=== PATIENT | male | born 1990 | race Caucasian/White ===

== ENCOUNTER → 2022-11-07 11:17 | Outpatient (CLI) | payer OTHER, SELFPAY ==
--- NOTE | ~2022-11-07 | US_ITS ---
Testicular ultrasound with doppler. Indication: Right testicular pain. Technique: Real-time sonography the scrotum was performed. Color flow Doppler and Doppler spectral an alysis were performed. Findings: The testes are homogeneous in echotexture bilaterally. There is no evidence of an intrates ticular mass. The right testis measures 5.0 x 2.4 x 3.1 cm and the left 4.9 x 2.5 x 3.0 cm. There is color-flow seen to both testes. Arterial and venous spectral waveforms are seen in both testes. There is no sonographic evidence of torsion. 3 mm right epididymal head cyst or spermatocele present. Smal l bilateral hydroceles are present. Impression: No testicular mass or torsion. Small bilateral hydroceles. 3 mm right epididymal head cyst or spermatocele. Reviewed, dictated and finalized at [facility]. Impression: No testicular mass or torsion. Small bilateral hydroceles. 3 mm right epididymal head cyst or spermatocele.
== END ==
PROVIDERS: PCP Family Medicine; Visit Provider Nurse Practitioner Family
DX: N43.3 Hydrocele, unspecified (principal); N50.3 Cyst of epididymis
CPT/HCPCS: 76870; 93976

== ENCOUNTER 2023-10-02 07:00 | Outpatient (NON) | payer OTHER, SELFPAY | END 2023-10-03 07:24 | disposition home or self-care (01) | PROVIDERS: PCP Family Medicine; Visit Provider Internal Medicine Gastroenterology | DX: K29.50 Unspecified chronic gastritis without bleeding (principal) | CPT/HCPCS: 88305 ==

== ENCOUNTER 2023-10-02 09:03 | Day surgery (SDC) | payer OTHER, SELFPAY ==
[2023-08-31 11:36] VITALS: BMI 32.0
--- NOTE | 2023-10-02 07:15 | WPDANESEPPF ---
Anes - Initial Pre Proc Eval Procedure: Operation Date: 10/02/23 11:30 Proposed Procedures p Esophagogastroduodenoscopy - Red Cardenas MD Date/Time: 10/02/23 07:15 Surgeon: Red Cardenas MD Pre Op Diagnosis: Gerd without Esophagitis Patient Data Age: 33 Gender: M Height: 1.83 m Weight: 102.5 kg Allergies Allergy/AdvReac Type Severity Reaction Status Date / Time Sulfa (Sulfonamide Allergy Mild Unknown Verified 10/02/23 10:10 Antibiotics) Home Medications Medication Instructions Recorded Confirmed Type finasteride 1 mg tablet 1 mg PO DAILY 08/20/20 10/02/23 History minoxidil 5 % topical solution 1 ml topical BID 05/26/21 10/02/23 History cetirizine 10 mg tablet (All Day 10 mg PO DAILY #30 tabs 04/11/23 10/02/23 Rx Allergy (cetirizine)) fluticasone propionate 50 1 spray intranasal BID #16 grams 08/29/23 10/02/23 Rx mcg/actuation nasal spray,suspension (Flonase Allergy Relief) pantoprazole 40 mg tablet,delayed 40 mg PO BID #60 tabs 08/29/23 10/02/23 Rx release (Protonix) Patient hx anesthesia problems: none Family hx anesthesia problems: none Results Review: All pre-operative results and documents have been reviewed as part of the pre-operative evaluation. [facility] Past Medical History Medical History Acute sinusitis BMI 31.0-31.9,adult BMI 33.0-33.9,adult Encounter for wellness examination in adult Enlarged lymph nodes GERD (gastroesophageal reflux disease) Male pattern alopecia Obesity (BMI 30.0-34.9) Seasonal allergic rhinitis Seasonal allergies Sensation of lump in throat Testicular pain, right (~10/2022) Ultrasound 11/07/2022 with small bilateral hydroceles, negative. Throat discomfort Surgical History Surgical History [place] teeth extracted Family History Family History Mother Skin cancer Grandparent Skin cancer Social History Social History Smoking status: Never smoker Alcohol intake: current Drinks per week: 1 Alcohol use details: 1-2 per month Substance use: never Substance use type: does not use Lack of Transportation: No Lack of Food: Never True Current Housing: I Have Housing Concerned About Future Housing: No Difficulty Paying Gas/Electric Bills: No Difficulty Paying for Meds: No Currently Unemployed: No Education: Bachelor's Degree Difficulty w/ Childcare or Family Care: No Anes - Eval Final PreProcedure Day of Procedure 10/02/23 07:15 Patient weight: obese Heart: regular rate and rhythm Lungs: clear to auscultation Airway: Mallampati scale class II Neurological: alert and oriented Last oral intake: >/= 8 hours ASA classification: II Emergent: no Anesthetic plan: proceed Anesthesia type and monitoring: general GIVS and standard monitoring Results Review: All pre-operative results and documents have been reviewed as part of the pre-operative evaluation. Informed Consent: The patient's anesthetic plan and its attendant risks and benefits were discussed with the patient/family/POA. Questions were solicited and answers provided to the satisfaction of the patient/family/POA.
[2023-10-02 10:17] VITALS: BP 123/73; PULSE 75; RESP 16; TEMP 37; O2SAT 100
--- NOTE | 2023-10-02 10:41 | PM.HPGS ---
History of Present Illness History of Present Illness Consent: Risks, benefits, and alternatives have been discussed and questions answered. Patient agrees to proceed with procedure. Chief complaint: Gerd without Esophagitis Narrative: Sudarshan Gore is a 33 year old male With symptoms of acid reflux for which he takes pantoprazole daily. He also has a sensation of a lump in throat. Review of Systems Review of Systems: All systems reviewed & are unremarkable except as noted in HPI and below PMFSH Past Medical History Medical History Acute sinusitis BMI 31.0-31.9,adult BMI 33.0-33.9,adult Encounter for wellness examination in adult Enlarged lymph nodes GERD (gastroesophageal reflux disease) Male pattern alopecia Obesity (BMI 30.0-34.9) Seasonal allergic rhinitis Seasonal allergies Sensation of lump in throat Testicular pain, right (~10/2022) Ultrasound 11/07/2022 with small bilateral hydroceles, negative. Throat discomfort Surgical History Surgical History [place] teeth extracted Family History Family History Mother Skin cancer Grandparent Skin cancer Social History Social History Smoking status: Never smoker Alcohol intake: current Drinks per week: 1 Alcohol use details: 1-2 per month Substance use: never Substance use type: does not use Lack of Transportation: No Lack of Food: Never True Current Housing: I Have Housing Concerned About Future Housing: No Difficulty Paying Gas/Electric Bills: No Difficulty Paying for Meds: No Currently Unemployed: No Education: Bachelor's Degree Difficulty w/ Childcare or Family Care: No Meds Home Medications and Allergies Home Medications Medication Instructions Recorded Confirmed Type finasteride 1 mg tablet 1 mg PO DAILY 08/20/20 10/02/23 History minoxidil 5 % topical solution 1 ml topical BID 05/26/21 10/02/23 History cetirizine 10 mg tablet (All Day 10 mg PO DAILY #30 tabs 04/11/23 10/02/23 Rx Allergy (cetirizine)) fluticasone propionate 50 1 spray intranasal BID #16 grams 08/29/23 10/02/23 Rx mcg/actuation nasal spray,suspension (Flonase Allergy Relief) pantoprazole 40 mg tablet,delayed 40 mg PO BID #60 tabs 08/29/23 10/02/23 Rx release (Protonix) Allergies Allergy/AdvReac Type Severity Reaction Status Date / Time Sulfa (Sulfonamide Allergy Mild Unknown Verified 10/02/23 10:10 Antibiotics) Vital Signs Vital Signs - 24 hr 10/02/23 10:17 Temperature 37.0 C Pulse Rate 75 Respiratory Rate 16 Blood Pressure 123/73 Pulse Oximetry 100 Oxygen Delivery Room Air Exam Const: General: alert Orientation/consciousness: patient oriented x3 Resp: Auscultation: clear to auscultation bilaterally Cardio: Rhythm: regular rhythm GI: GI Palp: Yes Soft to palpation and No Tenderness to palpation present (GI) Neuro: General: patient oriented x3 Assessment and Plan Assessment and plan (1) GERD (gastroesophageal reflux disease): Code(s): K21.9 - Gastro-esophageal reflux disease without esophagitis Status: Acute Assessment and Plan: EGD with possible biopsy or dilatation or cautery.
[2023-10-02] MEDS: LACTATED RINGERS 1,000 ML 150 ML IV CONT (11:11)
[2023-10-02 11:23] VITALS: BP 111/73; PULSE 66; RESP 14; O2SAT 95
[2023-10-02 11:33] VITALS: BP 103/70; PULSE 67; RESP 14; O2SAT 95
[2023-10-02 11:43] VITALS: BP 110/72; PULSE 68; RESP 16; O2SAT 98
--- NOTE | 2023-10-02 13:17 | WPDANESPN ---
Anes - Prog Note Post-Op Date/Time: 10/02/23 13:17 Cardiovascular status: normal Respiratory status: normal Airway patency: baseline Mental status: baseline Post-Op hydration status: normal Vital Signs: Last Vital Signs Temp 37.0 C 10/02/23 10:17 Pulse 68 10/02/23 11:43 Resp 16 10/02/23 11:43 BP 110/72 10/02/23 11:43 Pulse Ox 98 10/02/23 11:43 O2 Del Method Room Air 10/02/23 11:43 Pain Score (VAS): 0 I/O: Intake & Output 10/01/23 10/02/23 10/02/23 23:59 07:59 15:59 Intake Total 180 Balance 180 Post-procedural complaints: none Patient Feedback: Patient satisfied with anesthetic care. Other Findings: Patient vital signs back to baseline. Patient denies nausea and vomiting. Patient's pain under control. Patient OK for discharge.
== END 2023-10-02 12:00 | disposition home or self-care (01) ==
PROVIDERS: PCP Family Medicine; Visit Provider Internal Medicine Gastroenterology
PROC: 0DJ08ZZ Inspection of Upper Intestinal Tract, Via Natural or Artificial Opening Endoscopic (ICD-10-PCS; CPT 43235; principal; 2023-10-02 11:30)
DX: K21.9 Gastro-esophageal reflux disease without esophagitis (principal); K29.70 Gastritis, unspecified, without bleeding
CPT/HCPCS: 43239

== ENCOUNTER 2025-03-04 00:51 | Day surgery (SDC) | payer BC, SELFPAY ==
[2025-02-26 15:58] VITALS: BMI 29.2
[2025-03-04] MEDS: LACTATED RINGERS 1,000 ML 150 ML IV CONT (06:26)
[2025-03-04 06:27] VITALS: BP 114/76; PULSE 79; RESP 18; TEMP 36.2; O2SAT 99; BMI 28.5
--- NOTE | 2025-03-04 07:08 | WPDANESEPPF ---
Anes - Initial Pre Proc Eval Procedure: Operation Date: 03/04/25 07:30 Proposed Procedures p Diagnostic Colonoscopy - Norman Madsen MD Date/Time: 03/04/25 07:08 Surgeon: Norman Madsen MD Pre Op Diagnosis: Hemorrhage of anus and rectum Patient Data Age: 34 Gender: M Height: 1.83 m Weight: 95.3 kg Last Vital Signs Temp 97.1 F L 03/04/25 06:27 Pulse 79 03/04/25 06:27 Resp 18 03/04/25 06:27 BP 114/76 03/04/25 06:27 Pulse Ox 99 03/04/25 06:27 O2 Del Method Room Air 03/04/25 06:27 Allergies Allergy/AdvReac Type Severity Reaction Status Date / Time Sulfa (Sulfonamide Allergy Mild Unknown Verified 02/26/25 15:55 Antibiotics) Home Medications ?Medication ?Instructions ?Recorded ?Confirmed ?Type finasteride 1 mg tablet 1 mg PO DAILY 08/20/20 02/26/25 History minoxidil 5 % topical solution 1 ml topical BID 05/26/21 03/04/25 History cetirizine 10 mg tablet (All Day 10 mg PO DAILY #30 tabs 04/11/23 03/04/25 Rx Allergy (cetirizine)) cyclobenzaprine 10 mg tablet 10 mg PO . q.h.s. PRN muscle spasm 06/24/24 03/04/25 Rx #90 tabs fluticasone propionate 50 1 spray intranasal BID #16 grams 11/25/24 03/04/25 Rx mcg/actuation nasal spray,suspension (Flonase Allergy Relief) pantoprazole 40 mg tablet,delayed 40 mg PO BID #60 tabs 12/04/24 03/04/25 Rx release (Protonix) clindamycin phosphate 1 % lotion 1 applic topical DAILY 02/24/25 03/04/25 History doxycycline hyclate 100 mg capsule 100 mg PO DAILY 02/26/25 03/04/25 History finasteride cream 02/26/25 History Patient hx anesthesia problems: none Family hx anesthesia problems: none Results Review: All pre-operative results and documents have been reviewed as part of the pre-operative evaluation. [facility] Past Medical History Medical History Painful rectal bleeding Family history of adenomatous polyp of colon mother with pre cancerous colon polyps. Maternal grandfather with colon cancer. Myofascial neck pain Family history of prostate cancer in father father and grandfather with prostate cancer Eustachian tube dysfunction Sensation of lump in throat BMI 33.0-33.9,adult Seasonal allergies Throat discomfort Enlarged lymph nodes Acute sinusitis GERD (gastroesophageal reflux disease) Nonerosive esophagitis with mild chronic gastritis on gastric biopsy on EGD 10/02/2023. Testicular pain, right (~10/2022) Ultrasound 11/07/2022 with small bilateral hydroceles, negative. Obesity (BMI 30.0-34.9) BMI 31.0-31.9,adult Male pattern alopecia Seasonal allergic rhinitis Encounter for wellness examination in adult Surgical History Surgical History [place] teeth extracted Family History Family History Mother Skin cancer Grandparent Skin cancer Social History Social History Smoking status: Never smoker Alcohol intake: current Drinks per week: 1 Alcohol use details: 1-2 per month Substance use: never Substance use type: does not use Lack of Transportation: No Lack of Food: Never True Current Housing: I Have Housing Concerned About Future Housing: No Difficulty Paying Gas/Electric Bills: No Difficulty Paying for Meds: No Currently Unemployed: No Education: Bachelor's Degree Difficulty w/ Childcare or Family Care: No Living arrangements: with family Spiritual care concerns: No Anes - Eval Final PreProcedure Day of Procedure 03/04/25 07:08 Patient weight: overweight Lungs: normal air movement Airway: Mallampati scale Neurological: alert and oriented Last oral intake: >/= 8 hours ASA classification: I Emergent: no Anesthetic plan: proceed Anesthesia type and monitoring: general GIVS and standard monitoring Results Review: All pre-operative results and documents have been reviewed as part of the pre-operative evaluation. BMi 28, pt active w job, workouts, no cp or sob. Informed Consent: The patient's anesthetic plan and its attendant risks and benefits were discussed with the patient/family/POA. Questions were solicited and answers provided to the satisfaction of the patient/family/POA.
--- NOTE | 2025-03-04 07:19 | PM.IMHP ---
H&P: HPI History of Present Illness Date/Time: 03/04/25 07:19 Chief Complaint: Rectal bleeding Narrative: This patient has been experiencing intermittent episodes of scant amount of red blood per rectum for the past few months. He has been treated for hemorrhoids by his PCP. He is now referred for colonoscopy. In addition, his mother has a history of colonic polyps. Review of Systems Review of Systems: All systems reviewed & are unremarkable except as noted in HPI and below PMFSH Past Medical History Medical History Painful rectal bleeding Family history of adenomatous polyp of colon mother with pre cancerous colon polyps. Maternal grandfather with colon cancer. Myofascial neck pain Family history of prostate cancer in father father and grandfather with prostate cancer Eustachian tube dysfunction Sensation of lump in throat BMI 33.0-33.9,adult Seasonal allergies Throat discomfort Enlarged lymph nodes Acute sinusitis GERD (gastroesophageal reflux disease) Nonerosive esophagitis with mild chronic gastritis on gastric biopsy on EGD 10/02/2023. Testicular pain, right (~10/2022) Ultrasound 11/07/2022 with small bilateral hydroceles, negative. Obesity (BMI 30.0-34.9) BMI 31.0-31.9,adult Male pattern alopecia Seasonal allergic rhinitis Encounter for wellness examination in adult Surgical History Surgical History [place] teeth extracted Family History Family History Mother Skin cancer Grandparent Skin cancer Social History Social History Smoking status: Never smoker Alcohol intake: current Drinks per week: 1 Alcohol use details: 1-2 per month Substance use: never Substance use type: does not use Lack of Transportation: No Lack of Food: Never True Current Housing: I Have Housing Concerned About Future Housing: No Difficulty Paying Gas/Electric Bills: No Difficulty Paying for Meds: No Currently Unemployed: No Education: Bachelor's Degree Difficulty w/ Childcare or Family Care: No Living arrangements: with family Spiritual care concerns: No Meds Home Medications and Allergies Home Medications ?Medication ?Instructions ?Recorded ?Confirmed ?Type finasteride 1 mg tablet 1 mg PO DAILY 08/20/20 02/26/25 History minoxidil 5 % topical solution 1 ml topical BID 05/26/21 03/04/25 History cetirizine 10 mg tablet (All Day 10 mg PO DAILY #30 tabs 04/11/23 03/04/25 Rx Allergy (cetirizine)) cyclobenzaprine 10 mg tablet 10 mg PO . q.h.s. PRN muscle spasm 06/24/24 03/04/25 Rx #90 tabs fluticasone propionate 50 1 spray intranasal BID #16 grams 11/25/24 03/04/25 Rx mcg/actuation nasal spray,suspension (Flonase Allergy Relief) pantoprazole 40 mg tablet,delayed 40 mg PO BID #60 tabs 12/04/24 03/04/25 Rx release (Protonix) clindamycin phosphate 1 % lotion 1 applic topical DAILY 02/24/25 03/04/25 History doxycycline hyclate 100 mg capsule 100 mg PO DAILY 02/26/25 03/04/25 History finasteride cream 02/26/25 History Allergies Allergy/AdvReac Type Severity Reaction Status Date / Time Sulfa (Sulfonamide Allergy Mild Unknown Verified 02/26/25 15:55 Antibiotics) Vital Signs Vital Signs - 24 hr 03/04/25 06:27 Temperature 97.1 F L Pulse Rate 79 Respiratory Rate 18 Blood Pressure 114/76 Pulse Oximetry 99 Oxygen Delivery Room Air Exam Const: General: cooperative and healthy appearing Resp: Effort & Inspection: normal respiratory effort and able to speak in complete sentences Auscultation: clear to auscultation bilaterally Cardio: Rate: regular rate Rhythm: regular rhythm GI: Inspection: normal to inspection GI Palp: No No hepatosplenomegaly present Auscultation: normal bowel sounds Rectal Exam: deferred Skin: General skin exam: normal color Psych: Appearance: grossly normal Mental Status: mental status grossly normal Assessment and Plan Assessment and plan (1) Painful rectal bleeding: Code(s): K62.5 - Hemorrhage of anus and rectum; K62.89 - Other specified diseases of anus and rectum Status: Acute Assessment and Plan: The patient is deemed a good candidate for the procedure. Consent signed. Will proceed.
--- NOTE | 2025-03-04 07:44 | S_PTH ---
PATIENT: Sudarshan Gore LOC: [facility] U#:[id number] AGE/SX: 34/M ROOM: RE03/04/[address]: Norman Madsen MD : 1990 BED: DIS: 03/04/2025 SPEC #: [id number] RECD: 03/04/25 07:48 STATUS: YURY RETameka #: [id number] DAVE: 03/04/25 07:[address]: Norman Madsen DEPT: [facility] Surgical RECD BY: Troy Busby Tissues: A - Colon Polypectomy Procedures: Hematoxylin and Eosin Stain Gross and Microscopic Level 4
[2025-03-04 07:47] VITALS: BP 101/52; PULSE 77; RESP 24; O2SAT 100
[2025-03-04 07:57] VITALS: BP 98/51; PULSE 69; RESP 20; O2SAT 100
[2025-03-04 08:07] VITALS: BP 100/57; PULSE 668; RESP 18; O2SAT 100
== END 2025-03-04 08:13 | disposition home or self-care (01) ==
PROVIDERS: Referring Provider Nurse Practitioner; Visit Provider Internal Medicine Gastroenterology
PROC: 0DJD8ZZ Inspection of Lower Intestinal Tract, Via Natural or Artificial Opening Endoscopic (ICD-10-PCS; CPT 45378; principal; 2025-03-04 07:30)
DX: K62.89 Other specified diseases of anus and rectum (principal); D12.5 Benign neoplasm of sigmoid colon; K21.9 Gastro-esophageal reflux disease without esophagitis; L64.9 Androgenic alopecia, unspecified; Z98.890 Other specified postprocedural states; Z83.719 Family history of colon polyps, unspecified; Z80.0 Family history of malignant neoplasm of digestive organs; Z80.42 Family history of malignant neoplasm of prostate; Z84.0 Family history of diseases of the skin and subcutaneous tissue
CPT/HCPCS: 45385; 88305; J2003; J2704; J7120